=== PATIENT | male | born 1960 | race Caucasian/White ===

== ENCOUNTER 2022-02-26 09:29 | Day surgery (SDC) | payer OTHER ==
[2022-02-21 09:49] VITALS: BMI 22.2
[~2022-02-26 09:29] MED LIST: LACTATED RINGERS 1,000 ML IV SCH
[2022-02-26 10:03] VITALS: TEMP 97.7
[2022-02-26 10:07] LABS: Glucose,Whole Blood 97 mg/dL (70-110)
[2022-02-26] MEDS ORDERED: PROPOFOL 10 MG/ML 20 ML VIAL IV ONE (10:44)
--- NOTE | 2022-02-26 11:01 | P.PCN ---
Date of Procedure: 02/26/22 Procedure(s) Performed: BRIEF HISTORY: Patient is a 61-year-old pleasant male scheduled for an elective colonoscopy as a part of screening for colon cancer/history of colon polyps PROCEDURE PERFORMED: Colonoscopy. PREOPERATIVE DIAGNOSIS: Screening for colon cancer/history of colon polyps. IV sedation per Anesthesia. PROCEDURE: After informed consent was obtained, the patient, was brought into the endoscopy unit. IV sedation was administered by Anesthesia under continuous monitoring. Digital rectal examination was normal. Initially the Olympus CF-160 flexible video colonoscope was then inserted in the rectum, gradually advanced into the cecum without any difficulty. Careful examination was performed as the scope was gradually being withdrawn. Ileocecal valve and the appendiceal orifice were visualized and appeared normal. Prep was excellent. Mucosa of the cecum, ascending colon, transverse colon, descending colon, normal. Moderate left- sided diverticulosis seen. In the distal sigmoid colon there was patchy colitis with mucosal erythema and between 20-23 cm from the anal verge and biopsies were done from this area. Rest of the sigmoid colon, and rectum appeared normal. Retroflexion was performed in the rectum and grade 2 internal hemorrhoids were seen. The patient tolerated the procedure well. IMPRESSION: Small internal hemorrhoids Moderate left-sided diverticulosis Patchy colitis in the distal sigmoid colon between 20-23 cm from the anal verge status post biopsies RECOMMENDATIONS: Findings of this examination were discussed with the patient as well as a family. He was advised to follow with the biopsy results and have a repeat colonoscopy in 5 years..
[2022-02-26 11:06] VITALS: RESP 16
[2022-02-26 11:33] VITALS: BP 112/70; PULSE 81
== END 2022-02-26 11:47 | disposition home or self-care (01) ==
LOC: ORWHC2ENDO 09:29
PROVIDERS: ATTEND Internal Medicine Gastroenterology
DX: Z12.11 Encounter for screening for malignant neoplasm of colon (principal); K63.5 Polyp of colon; K52.9 Noninfective gastroenteritis and colitis, unspecified; K57.30 Diverticulosis of large intestine without perforation or abscess without bleeding; K64.1 Second degree hemorrhoids; I10 Essential (primary) hypertension; J44.9 Chronic obstructive pulmonary disease, unspecified; F17.210 Nicotine dependence, cigarettes, uncomplicated; Z79.82 Long term (current) use of aspirin; Z79.811 Long term (current) use of aromatase inhibitors; Z79.899 Other long term (current) drug therapy
CPT/HCPCS: 88305; 45380; J2704